=== PATIENT | female | born 1955 | race Hispanic/Latino ===

== ENCOUNTER → 2019-05-14 | Outpatient (CLI) | payer MEDICARE ==
[~2019-05-14] MED LIST: BYSTOLIC20 MG PO; DEXILANT60 MG PO; DIOVAN320 MG PO; FENOFIBRATE134 MG PO; LEVOTHYROXINE100 MC1 PO; PREMARIN42.5 GM VG; RESTASIS1 EACH OP; SUPER OMEGA-31000 MG PO; TRIAMTERENE-HCTZ1 EA PO; XANAX1 MG PO; ZYRTEC10 M3 PO
--- NOTE | 2019-05-15 12:58 | Diagnostic Imaging Report ---
Lumbar spine series, 7 views. History: Lumbar reticular opacity. Comparison: None available. Discussion: The paraspinal soft tissues are unremarkable. There is no scoliosis. There is grade 2 anterolisthesis of L4 and L5 without evidence of spondylolysis. Severe disc space narrowing with osteophytosis is also present at this level. Diffuse posterior facet sclerosis is noted. Flexion and extension views demonstrates change in the subluxation. There is no evidence of acute fracture. IMPRESSION: Grade 2 anterolisthesis of L4 and L5 without evidence of instability on flexion and extension views. Signed by: Florin Esparza on 05/15/2019 12:55 PM
== END ==
LOC: RAD 14:30
PROVIDERS: ATTEND Neurological Surgery
DX: M54.16 Radiculopathy, lumbar region (principal)
CPT/HCPCS: 72114

== ENCOUNTER → 2022-09-04 | Outpatient (CLI) | payer MEDICARE | LOC: US 07:41 | PROVIDERS: ATTEND Internal Medicine Endocrinology, Diabetes & Metabolism | DX: K76.0 Fatty (change of) liver, not elsewhere classified (principal) | CPT/HCPCS: 76700 ==